=== PATIENT | female | born 1980 | race Caucasian/White ===

== ENCOUNTER 2019-12-13 15:07 | Emergency (ER) | payer MEDICAID, SELFPAY ==
[2019-12-13 15:09] VITALS: BP 112/64; PULSE 99; RESP 18; TEMP 36.9; O2SAT 97; BMI 23.9
[2019-12-13 15:36] LABS: Microscopic, Urine URINE MICROSCOPIC (MICROSCOPIC)
[2019-12-13 15:38] LABS: Basophils # 0.2 K/mm3 (0-0.2); Basophils % 1.9 % (0.1-2.0); Eosinophils # 0.2 K/mm3 (0.0-0.4); Eosinophils % 1.8 % (0.1-12.0); Lymphocytes # 2.5 K/mm3 (0.7-4.5); Lymphocytes % 23.5 % (10-50); Mean Corpuscular HGB Conc 34.1 g/dL (31.8-35.4); Mean Corpuscular Hemoglobin 30.1 pg (27.0-31.2); Mean Corpuscular Volume 88.2 fl (81-99); Mean Platelet Volume 7.9 fl (7.4-10.4); Monocytes # 0.7 K/mm3 (0.1-1.0); Monocytes % 6.9 % (1.7-9.3); Neutrophils % 65.8 % (37.0-80.0); Platelet Count 242 K/mm3 (142-424); Red Blood Count 4.99 M/mm3 (4.20-5.40); White Blood Count 10.6 K/mm3 (4.8-10.8)
[2019-12-13 15:40] LABS: Appearance,Urine CLEAR (Clear); Bilirubin,Urine Negative (Negative); Blood, Urine Negative (Negative); Color,Urine YELLOW (Yellow); Glucose,Urine (UA) Negative (Negative); Ketones,Urine Negative (Negative); Leukocyte Esterase,Urine Negative (Negative); Nitrate,Urine Negative (Negative); Protein,Urine Negative (Negative); Specific Gravity, Urine 1.025 (1.005-1.030); Urobilinogen,Urine 0.2 EU/dl (0.2)
[2019-12-13 15:41] LABS: Urine Pregnancy, HCG Qual. Negative (Negative)
--- NOTE | 2019-12-13 15:46 | [facility].EDGENADL ---
ED Disposition Clinical Impression: Gastroenteritis Disposition: Home, Self-Care Condition on Discharge: Good Instructions: DI for Viral Gastroenteritis -- Adult Additional Instructions: Follow-up with primary care provider, call for appointment Prescriptions: Loperamide HCl [Loperamide] 2 mg PO TIDP PRN #10 tab PRN Reason: Diarrhea Prescription Printed Ondansetron [Zofran 4mg ODT] 4 mg PO TIDP PRN #10 tab.rapdis PRN Reason: Nausea And Vomiting Prescription Printed Referrals: Provider,Referral, [Primary Care Provider] - - Critical Care Critical Care Time: No Attestation: On 12/13/19, the high probability of a clinically significant, sudden or life threatening deterioration of the following system(s) required my full and direct attention, intervention and personal management. The time I documented below is in addition to time spent performing reported procedures but includes the following listed in this critical care notation. Medical Decision Making - [place] Inquiry Pt receiving controlled substance: No Vital Signs: 12/13/19 15:09 12/13/19 16:04 12/13/19 17:11 Temperature 98.4 F 98.2 F Temperature Source Oral Pulse Rate 100 H Pulse Rate [Right] 99 H 87 Respiratory Rate 18 20 20 Blood Pressure 132/87 Blood Pressure [Right Arm] 112/64 118/66 Blood Pressure Mean [Right Arm] 80 83 Blood Pressure Source [Right Arm] Automatic Cuff Blood Pressure Position [Right Arm] Supine 02 Sat by Pulse Oximetry 97 96 - Lab Data Lab results reviewed: Yes: I reviewed the patient's lab results. Lab Results 12/13/19 15:20: Urine Color Yellow, Urine Appearance Clear, Urine pH 6.0, Ur Specific [place] 1.025, Urine Protein Negative, Urine Glucose (UA) Negative, Urine Ketones Negative, Urine Blood Negative, Urine Nitrate Negative, Urine Bilirubin Negative, Urine Urobilinogen 0.2, Ur Leukocyte Esterase Negative, Urine RBC 3-5, Urine WBC 3-5, Ur Squamous Epith Cells 5-10, Urine Bacteria 1+ 12/13/19 15:20: Urine HCG, Qual Negative 12/13/19 15:30: WBC 10.6, RBC 4.99, Hgb 15.0, Hct 44.0, MCV 88.2, MCH 30.1, MCHC 34.1, RDW 13.0, Plt Count 242, MPV 7.9, Neut % (Auto) 65.8, Lymph % (Auto) 23.5, [place] % (Auto) 6.9, Eos % (Auto) 1.8, Baso % (Auto) 1.9, Neut # (Auto) 7.0, Lymph # (Auto) 2.5, [place] # (Auto) 0.7, Eos # (Auto) 0.2, Baso # (Auto) 0.2 12/13/19 15:30: Sodium 137, Potassium 4.1, Chloride 106, Carbon Dioxide 22, Anion Gap 13.1, BUN 11, Creatinine 0.90, Estimated Creat Clear 82, Estimated GFR 70, Est GFR ( Amer) 85, Glucose 131 H, Calcium 8.8, Total Bilirubin 0.6, AST 27, ALT 41, Alkaline Phosphatase 73, Total Protein 7.9, Albumin 4.8, Globulin 3.1, Albumin/Globulin Ratio 1.5 12/13/19 15:30: Serum HCG, Qual Negative Result diagrams: 12/13/19 15:30 12/13/19 15:30 General Adult HPI - General Chief complaint: Nausea/Vomiting/Diarrhea Stated complaint: Abd pain 17 days late on period Time Seen by Provider: 12/13/19 15:46 Mode of Arrival: Ambulatory Limitations: No Limitations Description of Symptoms (Recalled from ER Triage Doc. by RN): States she believes she may be because she is 17 days late on her period and has all the symptoms of being such as VALENZUELA, belly cramping and nausea. - History of Present Illness HPI narrative: 1 week history of nausea, vomiting, diarrhea, lower abdominal cramping. States she has not had a period in 17 days. She has done home test which was negative, but says with her other 2 children a home test did not turn positive until she was 4 months . She wants a blood test. No recent travel or antibiotics. No blood in her diarrhea. No fever. She has some minimal chronic cough from allergies and smoking, otherwise no URI symptoms. No known exposures to illnesses. - Related Data Previous Rx's Medication Instructions Recorded Loperamide HCl [Loperamide] 2 mg PO TIDP PRN #10 tab 12/13/19 Ondansetron [Zofr
[2019-12-13 15:47] LABS: Chloride 106 mmol/L (98-107); Potassium 4.1 mmoL/L (3.5-5.1); Sodium 137 mmol/L (136-145)
[2019-12-13 15:49] LABS: Blood Urea Nitrogen 11 mg/dl (7-17); Creatinine Clearance Estimated 82 mL/min (50-200); Estimated Glomerular Filt Rate 70 ml/min (>60); GFR (African American) 85 ML/MIN (>60)
[2019-12-13 15:50] LABS: Alanine Aminotransferase 41 U/L (12-78); Albumin Level 4.8 g/dl (3.5-5.0); Albumin/Globulin Ratio 1.5 (1.1-1.8); Alkaline Phosphatase 73 U/L (38-126); Anion Gap 13.1 mEq/L (5-15); Aspartate Amino Transferase 27 U/L (14-36); Bilirubin,Total 0.6 mg/dl (0.2-1.3); Carbon Dioxide 22 mmol/L (22.0-30.0); Globulin 3.1 g/dL (1.3-3.2); Total Protein,Serum 7.9 g/dl (6.3-8.2)
[2019-12-13 15:52] LABS: Bacteria,Urine 1+ /lpf
[2019-12-13 15:56] LABS: Calcium 8.8 mg/dl (8.4-10.2)
[2019-12-13 15:59] LABS: HCG Qualitative, Serum Negative (Negative)
[2019-12-13 16:04] VITALS: BP 118/66; PULSE 87; RESP 20; O2SAT 96
[2019-12-13 16:16] LABS: Glucose 131 mg/dl (74-100)
[2019-12-13 17:11] VITALS: BP 132/87; PULSE 100; RESP 20; TEMP 36.8; O2SAT 98
== END 2019-12-13 17:11 | disposition home or self-care (01) ==
PROVIDERS: Emergency Provider Emergency Medicine
DX: K52.9 Noninfective gastroenteritis and colitis, unspecified (principal); F17.210 Nicotine dependence, cigarettes, uncomplicated
CPT/HCPCS: 80053; 81001; 81025; 84703; 85025; 96372; 99283

== ENCOUNTER → 2021-11-07 09:03 | Outpatient (CLI) | payer OTHER, SELFPAY ==
[2021-11-07 09:23] LABS: Basophils # 0.1 K/mm3 (0-0.2); Basophils % 2.4 % (0.1-2.0); Eosinophils # 0.2 K/mm3 (0.0-0.4); Eosinophils % 2.7 % (0.1-12.0); Hematocrit 41.7 % (37.0-47.0); Hemoglobin 14.3 g/dL (12.2-16.2); Lymphocytes # 1.9 K/mm3 (0.7-4.5); Lymphocytes % 31.8 % (10-50); Mean Corpuscular HGB Conc 34.3 g/dL (31.8-35.4); Mean Corpuscular Hemoglobin 30.8 pg (27.0-31.2); Mean Corpuscular Volume 89.7 fl (81-99); Mean Platelet Volume 8.6 fl (7.4-10.4); Monocytes # 0.4 K/mm3 (0.1-1.0); Monocytes % 7.5 % (1.7-9.3); Neutrophils # 3.3 K/mm3 (1.8-7.8); Neutrophils % 55.5 % (37.0-80.0); Platelet Count 239 K/mm3 (142-424); Red Blood Count 4.65 M/mm3 (4.20-5.40); White Blood Count 5.9 K/mm3 (4.8-10.8)
[2021-11-07 10:09] LABS: Alanine Aminotransferase 145 U/L (12-78); Albumin Level 4.5 g/dl (3.5-5.0); Albumin/Globulin Ratio 1.7 (1.1-1.8); Alkaline Phosphatase 92 U/L (38-126); Anion Gap 13.4 mEq/L (5-15); Aspartate Amino Transferase 77 U/L (14-36); Bilirubin,Total 0.4 mg/dl (0.2-1.3); Blood Urea Nitrogen 18 mg/dl (7-17); Calcium 8.7 mg/dl (8.4-10.2); Carbon Dioxide 24 mmol/L (22.0-30.0); Chloride 106 mmol/L (98-107); Chol/HDL Ratio 8.2 (1-3.5); Cholesterol 212 mg/dl (140-200); Estimated Glomerular Filt Rate 79 ml/min (>60); GFR (African American) 96 ML/MIN (>60); Globulin 2.7 g/dL (1.3-3.2); Glucose 108 mg/dl (74-100); HDL Cholesterol 26 mg/dl (40-60); Potassium 4.4 mmoL/L (3.5-5.1); Sodium 139 mmol/L (136-145); Total Protein,Serum 7.2 g/dl (6.3-8.2)
[2021-11-07 10:15] LABS: Triglycerides 459 mg/dl (30-150)
[2021-11-07 10:20] LABS: Direct LDL Cholesterol 69.29 mg/dL (100-129)
[2021-11-07 10:40] LABS: Thyroid Stimulating Hormone 1.62 uIU/mL (0.465-4.68)
[2021-11-07 10:59] LABS: Vitamin B12 362 pg/mL (239-931)
== END ==
PROVIDERS: PCP Internal Medicine Adolescent Medicine; Visit Provider Nurse Practitioner Family
DX: Z00.00 Encounter for general adult medical examination without abnormal findings (principal); R53.83 Other fatigue; E53.8 Deficiency of other specified B group vitamins; E55.9 Vitamin D deficiency, unspecified
CPT/HCPCS: 36415; 80053; 80061; 82306; 82607; 84443; 85025

== ENCOUNTER → 2021-11-24 08:00 | Outpatient (CLI) | payer OTHER, SELFPAY ==
--- NOTE | 2021-11-24 08:05 | MM_ITS ---
PROCEDURE INFORMATION: Exam: Bilateral Screening 3D Mammography Exam date and time: 11/24/2021 8:00 AM Age: 41 years old Clinical indication: Baseline. No family history of breast cancer. TECHNIQUE: Imaging protocol: Bilateral Screening tomosynthesis and 2D mammography including computer-aided detection (CAD) when performed. COMPARISON: No relevant prior studies available. FINDINGS: MAMMOGRAPHY: Breast composition: There are scattered areas of fibroglandular density. Mass: None. Architectural distortion: None. Calcifications: No suspicious calcifications. Asymmetric density: None. Skin thickening: None. Axillary adenopathy: None. IMPRESSION: No mammographic evidence of malignancy. Annual screening is recommended unless otherwise clinically indicated. ASSESSMENT: BI-RADS Category 1: Negative
--- NOTE | 2021-11-24 08:05 | US_ITS ---
FINAL REPORT CLINICAL HISTORY: ELEVATED LIVER ENZYMES-- pt states fam hx of fatty liver FINDINGS: Sonographic images of the right upper quadrant were obtained. There is fatty infiltration of the liver. Note is made of gallstones. The common duct measures 2 mm. There is no evidence of biliary ductal dilatation. Limited images of the right kidney are unremarkable. IMPRESSION: Fatty liver. Cholelithiasis. Reviewed, Interpreted and Dictated by Romario Pat III, MD Transcribed by Jenny Spence Authenticated and [facility]
== END ==
PROVIDERS: PCP Internal Medicine Adolescent Medicine; Visit Provider Nurse Practitioner Family
DX: Z12.31 Encounter for screening mammogram for malignant neoplasm of breast (principal); R74.8 Abnormal levels of other serum enzymes
CPT/HCPCS: 76705; 77063; 77067